=== PATIENT | female | born 1930 | race Caucasian/White ===

== ENCOUNTER → 2016-02-19 | Outpatient (REF) | payer MEDICARE, OTHER ==
[~2016-02-19] MED LIST: /FENO48TA; /FENO48TA PO; /WARF25TA OR; /WARF5TA OR; /WARF5TA PO; ALDA25TA2 OR; ALLO300T OR; AMIT25TA2; ATEN50TA2; ATEN50TA2 PO; AZOPT 1%; AZOPT OU; BABY81CH; CALC0.5C PO; CALCCHW12 PO; CIPR250T3 OR; CIPR25SS OR; COLA100C2 OR; COLC0.6T; DIPH2.5L OR; DOXE10CA2; FERR325T OR; FLAG500T OR; LASI40TA; LASI40TA PO; LEVA500T OR; LIPI10TA; LISI10TA4 OR; LISI20TA5; LUMIGAN 0.03%; LUMIGAN 0.03% OU; MACR50CA PO; MAGN500T2 OR; MULTIVIT OR; NEUR100C OR; NEUR300C; NEUR300C OR; NEUR600T OR; NYSTPOW4 TOP; OYST500T OR; POTA10CA2 OR; PRIL20CA; PRIL20CA PO; ROCA0.25; SERT50TA2 OR; SIMV20TA2 OR; TIMO0.5S OU; TIMO0.5S3; TYL OR; VITA100T PO; ZYLO100T; [UNRECOGNIZED DRUG - OTHER] OU; cosopt OU
[2016-02-19 12:28] LABS: INR 2.22
== END ==
LOC: SKLAB6 07:00
PROVIDERS: ATTEND Family Medicine
DX: Z51.81 Encounter for therapeutic drug level monitoring (principal); Z79.01 Long term (current) use of anticoagulants

== ENCOUNTER → 2016-02-26 | Outpatient (REF) | payer MEDICARE, OTHER ==
[2016-02-26 08:45] LABS: MEAN CORPUSCULAR HEMOGLOBIN 31.5 pg (27.0-33.0); MEAN CORPUSCULAR HGB CONC 32.5 g/dl (32.0-36.5); MEAN CORPUSCULAR VOLUME 97.1 fl (80.0-96.0); RED CELL DISTRIBUTION WIDTH 14.4 % (11.5-14.5); WHITE BLOOD COUNT 7.1 K/mm3 (4.0-10.0)
[2016-02-26 09:08] LABS: INR 2.5
[2016-02-26 09:16] LABS: CALCIUM LEVEL 9.3 MG/DL (8.8-10.2); CREATININE FOR GFR 1.34 MG/DL (0.55-1.02); GLOMERULAR FILTRATION RATE 39.9 (>32); POTASSIUM SERUM 4.6 MEQ/L (3.5-5.1)
== END ==
LOC: SKLAB6 07:00
PROVIDERS: ATTEND Family Medicine
DX: M10.9 Gout, unspecified (principal); Z79.01 Long term (current) use of anticoagulants

== ENCOUNTER → 2016-03-04 | Outpatient (REF) | payer MEDICARE, OTHER ==
[2016-03-04 08:32] LABS: INR 2.34
== END ==
LOC: SKLAB6 07:00
PROVIDERS: ATTEND Family Medicine
DX: Z51.81 Encounter for therapeutic drug level monitoring (principal); Z79.01 Long term (current) use of anticoagulants

== ENCOUNTER → 2016-03-11 | Outpatient (REF) | payer MEDICARE, OTHER ==
[2016-03-11 09:22] LABS: INR 2.4
== END ==
LOC: SKLAB6 07:00
PROVIDERS: ATTEND Family Medicine
DX: Z51.81 Encounter for therapeutic drug level monitoring (principal); Z79.01 Long term (current) use of anticoagulants

== ENCOUNTER → 2016-03-18 | Outpatient (REF) | payer MEDICARE, OTHER ==
[2016-03-18 08:42] LABS: INR 2.43
== END ==
LOC: SKLAB6 07:00
PROVIDERS: ATTEND Family Medicine
DX: Z79.01 Long term (current) use of anticoagulants (principal)

== ENCOUNTER → 2016-03-25 | Outpatient (REF) | payer MEDICARE, OTHER ==
[2016-03-25 08:12] LABS: INR 2.32
== END ==
LOC: SKLAB6 07:00
PROVIDERS: ATTEND Family Medicine
DX: Z51.81 Encounter for therapeutic drug level monitoring (principal); Z79.01 Long term (current) use of anticoagulants

== ENCOUNTER → 2016-04-01 | Outpatient (REF) | payer MEDICARE, OTHER ==
[2016-04-01 09:24] LABS: INR 1.93
== END ==
LOC: SKLAB6 07:00
PROVIDERS: ATTEND Family Medicine
DX: Z79.01 Long term (current) use of anticoagulants (principal)

== ENCOUNTER → 2016-04-08 | Outpatient (REF) | payer MEDICARE, OTHER ==
[2016-04-08 08:28] LABS: INR 1.84
== END ==
LOC: SKLAB6 07:00
PROVIDERS: ATTEND Family Medicine
DX: Z79.01 Long term (current) use of anticoagulants (principal)

== ENCOUNTER → 2016-04-15 | Outpatient (REF) | payer MEDICARE, OTHER ==
[2016-04-15 09:28] LABS: INR 2.48
== END ==
LOC: SKLAB6 07:00
PROVIDERS: ATTEND Family Medicine
DX: I48.91 Unspecified atrial fibrillation (principal)

== ENCOUNTER → 2016-04-22 | Outpatient (REF) | payer MEDICARE, OTHER ==
[2016-04-22 09:41] LABS: INR 2.33
== END ==
LOC: SKLAB6 07:00
PROVIDERS: ATTEND Family Medicine
DX: Z79.01 Long term (current) use of anticoagulants (principal)

== ENCOUNTER → 2016-04-29 | Outpatient (REF) | payer MEDICARE, OTHER ==
[2016-04-29 10:00] LABS: INR 2.03
== END ==
LOC: SKLAB6 07:00
PROVIDERS: ATTEND Family Medicine
DX: I48.2 Chronic atrial fibrillation (principal)

== ENCOUNTER → 2016-05-06 | Outpatient (REF) | payer MEDICARE, OTHER ==
[2016-05-06 09:45] LABS: INR 2.05
== END ==
LOC: SKLAB6 07:00
PROVIDERS: ATTEND Family Medicine
DX: Z79.01 Long term (current) use of anticoagulants (principal)

== ENCOUNTER → 2016-05-20 | Outpatient (REF) | payer MEDICARE, OTHER | LOC: SKLAB6 07:00 | PROVIDERS: ATTEND Family Medicine | DX: Z79.01 Long term (current) use of anticoagulants (principal) ==

== ENCOUNTER → 2016-05-27 | Outpatient (REF) | payer MEDICARE, OTHER ==
[2016-05-27 08:40] LABS: INR 2.59
[2016-05-27 08:47] LABS: CALCIUM LEVEL 9.4 MG/DL (8.8-10.2); CREATININE FOR GFR 1.3 MG/DL (0.55-1.02); GLOMERULAR FILTRATION RATE 41.3 (>32); POTASSIUM SERUM 4.8 MEQ/L (3.5-5.1)
== END ==
LOC: SKLAB6 07:00
PROVIDERS: ATTEND Family Medicine
DX: I50.32 Chronic diastolic (congestive) heart failure (principal)

== ENCOUNTER → 2016-06-10 | Outpatient (REF) | payer MEDICARE, OTHER ==
[2016-06-10 08:40] LABS: INR 2.49
== END ==
LOC: SKLAB6 07:00
PROVIDERS: ATTEND Family Medicine
DX: Z79.01 Long term (current) use of anticoagulants (principal)

== ENCOUNTER → 2016-06-24 | Outpatient (REF) | payer MEDICARE, OTHER ==
[2016-06-24 09:21] LABS: CALCIUM LEVEL 9.2 MG/DL (8.8-10.2); CREATININE FOR GFR 1.23 MG/DL (0.55-1.02); GLOMERULAR FILTRATION RATE 44.1 (>32); POTASSIUM SERUM 4.8 MEQ/L (3.5-5.1)
[2016-06-24 09:22] LABS: INR 2.08
== END ==
LOC: SKLAB6 07:00
PROVIDERS: ATTEND Family Medicine
DX: I48.91 Unspecified atrial fibrillation (principal); Z79.01 Long term (current) use of anticoagulants

== ENCOUNTER → 2016-07-15 | Outpatient (REF) | payer MEDICARE, OTHER ==
[2016-07-15 09:12] LABS: INR 2.2
== END ==
LOC: SKLAB6 07:00
PROVIDERS: ATTEND Family Medicine
DX: Z79.01 Long term (current) use of anticoagulants (principal)

== ENCOUNTER → 2016-07-22 | Outpatient (REF) | payer MEDICARE, OTHER ==
[2016-07-22 10:16] LABS: CALCIUM LEVEL 8.7 MG/DL (8.8-10.2); CREATININE FOR GFR 1.3 MG/DL (0.55-1.02); GLOMERULAR FILTRATION RATE 41.3 (>32); POTASSIUM SERUM 4.7 MEQ/L (3.5-5.1)
== END ==
LOC: SKLAB6 08:00
PROVIDERS: ATTEND Family Medicine
DX: I48.91 Unspecified atrial fibrillation (principal); I50.9 Heart failure, unspecified

== ENCOUNTER → 2016-08-26 | Outpatient (REF) | payer MEDICARE, OTHER ==
[2016-08-26 10:36] LABS: INR 2.24
== END ==
LOC: SKLAB6 07:00
PROVIDERS: ATTEND Family Medicine
DX: I48.91 Unspecified atrial fibrillation (principal)

== ENCOUNTER → 2016-09-23 | Outpatient (REF) | payer MEDICARE, OTHER ==
[2016-09-23 10:29] LABS: INR 2.17
[2016-09-23 10:36] LABS: MEAN CORPUSCULAR HEMOGLOBIN 32.8 pg (27.0-33.0); MEAN CORPUSCULAR HGB CONC 32.4 g/dl (32.0-36.5); MEAN CORPUSCULAR VOLUME 101.2 fl (80.0-96.0); RED CELL DISTRIBUTION WIDTH 13.5 % (11.5-14.5); WHITE BLOOD COUNT 5.9 K/mm3 (4.0-10.0)
[2016-09-23 10:46] LABS: URIC ACID 6.5 MG/DL (2.6-6.0)
== END ==
LOC: SKLAB6 07:00
PROVIDERS: ATTEND Family Medicine
DX: I48.91 Unspecified atrial fibrillation (principal); I50.9 Heart failure, unspecified

== ENCOUNTER → 2016-10-28 | Outpatient (REF) | payer MEDICARE, OTHER ==
[2016-10-28 09:59] LABS: INR 2.16
[2016-10-28 10:12] LABS: CALCIUM LEVEL 9.1 MG/DL (8.8-10.2); CREATININE FOR GFR 1.35 MG/DL (0.55-1.02); GLOMERULAR FILTRATION RATE 39.5 (>32); POTASSIUM SERUM 4.7 MEQ/L (3.5-5.1)
== END ==
LOC: SKLAB6 07:00
PROVIDERS: ATTEND Family Medicine
DX: I48.91 Unspecified atrial fibrillation (principal); I50.9 Heart failure, unspecified

== ENCOUNTER → 2016-11-25 | Outpatient (REF) | payer MEDICARE, OTHER ==
[2016-11-25 10:06] LABS: INR 2.17
== END ==
LOC: SKLAB6 07:00
PROVIDERS: ATTEND Family Medicine
DX: I50.9 Heart failure, unspecified (principal)

== ENCOUNTER → 2016-12-23 | Outpatient (REF) | payer MEDICARE, OTHER ==
[2016-12-23 11:45] LABS: INR 2.54
== END ==
LOC: SKLAB6 07:00
PROVIDERS: ATTEND Family Medicine
DX: I50.30 Unspecified diastolic (congestive) heart failure (principal); M10.9 Gout, unspecified

== ENCOUNTER → 2017-01-27 | Outpatient (REF) | payer MEDICARE, OTHER ==
[2017-01-27 09:03] LABS: INR 3.01
[2017-01-27 09:17] LABS: CALCIUM LEVEL 8.7 MG/DL (8.8-10.2); CREATININE FOR GFR 1.31 MG/DL (0.55-1.02); GLOMERULAR FILTRATION RATE 40.9 (>32); POTASSIUM SERUM 4.9 MEQ/L (3.5-5.1)
== END ==
LOC: SKLAB6 07:00
PROVIDERS: ATTEND Family Medicine
DX: I50.9 Heart failure, unspecified (principal); G30.9 Alzheimer's disease, unspecified

== ENCOUNTER → 2017-02-03 | Outpatient (REF) | payer MEDICARE, OTHER ==
[2017-02-03 09:33] LABS: INR 2.53
== END ==
LOC: SKLAB6 07:00
PROVIDERS: ATTEND Family Medicine
DX: Z79.01 Long term (current) use of anticoagulants (principal)

== ENCOUNTER → 2017-02-24 | Outpatient (REF) | payer MEDICARE, OTHER ==
[2017-02-24 09:56] LABS: INR 2.88; PROTHROMBIN TIME 31.5 SECONDS (12.4-14.5)
== END ==
LOC: SKLAB6 07:00
DX: Z51.81 Encounter for therapeutic drug level monitoring (principal); Z79.01 Long term (current) use of anticoagulants
CPT/HCPCS: 36415

== ENCOUNTER 2017-03-18 10:30 | Emergency (ER) | payer MEDICARE, OTHER ==
[2017-03-18 12:30] LABS: BEDSIDE GLUCOSE 153 MG/DL (83-110)
[2017-03-18] MEDS: TETANUS/DIPHTHERIA TOX ADSORB ADULT 0.5ML SYR/VIAL (90714) IM (13:01)
== END 2017-03-18 13:07 | disposition home or self-care (01) ==
LOC: M ED 10:30
DX: S02.2XXB Fracture of nasal bones, initial encounter for open fracture (principal); W05.0XXA Fall from non-moving wheelchair, initial encounter; Y92.129 Unspecified place in nursing home as the place of occurrence of the external cause; I12.9 Hypertensive chronic kidney disease with stage 1 through stage 4 chronic kidney disease, or unspecified chronic kidney disease; J44.9 Chronic obstructive pulmonary disease, unspecified; I50.9 Heart failure, unspecified; N18.3 Chronic kidney disease, stage 3 (moderate); F03.90 Unspecified dementia, unspecified severity, without behavioral disturbance, psychotic disturbance, mood disturbance, and anxiety; K21.9 Gastro-esophageal reflux disease without esophagitis; M10.9 Gout, unspecified; H40.9 Unspecified glaucoma; I48.91 Unspecified atrial fibrillation; E66.9 Obesity, unspecified; G47.33 Obstructive sleep apnea (adult) (pediatric); Z88.0 Allergy status to penicillin; Z88.1 Allergy status to other antibiotic agents; Z88.2 Allergy status to sulfonamides; Z88.8 Allergy status to other drugs, medicaments and biological substances
CPT/HCPCS: 90714

== ENCOUNTER → 2017-03-24 | Outpatient (REF) | payer MEDICARE, OTHER ==
[2017-03-24 09:02] LABS: HEMATOCRIT 36.1 % (36.0-47.0); HEMOGLOBIN 11.3 g/dl (12.0-16.0); MEAN CORPUSCULAR HEMOGLOBIN 31.4 pg (27.0-33.0); MEAN CORPUSCULAR HGB CONC 31.3 g/dl (32.0-36.5); MEAN CORPUSCULAR VOLUME 100.3 fl (80.0-96.0); PLATELET COUNT, AUTOMATED 210 10^3/uL (150-450); RED CELL DISTRIBUTION WIDTH 14.2 % (11.5-14.5); WHITE BLOOD COUNT 7.5 10^3/uL (4.0-10.0)
[2017-03-24 09:25] LABS: INR 3.65; PROTHROMBIN TIME 38.1 SECONDS (12.4-14.5)
[2017-03-24 09:28] LABS: URIC ACID 7.1 MG/DL (2.6-6.0)
== END ==
LOC: SKLAB6 07:00
DX: G30.1 Alzheimer's disease with late onset (principal); F02.80 Dementia in other diseases classified elsewhere, unspecified severity, without behavioral disturbance, psychotic disturbance, mood disturbance, and anxiety; I48.91 Unspecified atrial fibrillation
CPT/HCPCS: 84550

== ENCOUNTER → 2017-04-07 | Outpatient (REF) | payer MEDICARE, OTHER ==
[2017-04-07 10:20] LABS: INR 2.05; PROTHROMBIN TIME 23.8 SECONDS (12.4-14.5)
== END ==
LOC: SKLAB6 07:00
DX: Z79.01 Long term (current) use of anticoagulants (principal)
CPT/HCPCS: 36415

== ENCOUNTER → 2017-04-14 | Outpatient (REF) | payer MEDICARE, OTHER ==
[2017-04-14 08:48] LABS: INR 2.39
== END ==
LOC: SKLAB6 07:00
DX: Z79.01 Long term (current) use of anticoagulants (principal)
CPT/HCPCS: 36415

== ENCOUNTER → 2017-04-21 | Outpatient (REF) | payer MEDICARE, OTHER ==
[2017-04-21 08:12] LABS: INR 2.67; PROTHROMBIN TIME 29.5 SECONDS (12.4-14.5)
[2017-04-21 08:45] LABS: ANION GAP 9 MEQ/L (8-16); BLOOD UREA NITROGEN 20 MG/DL (7-18); CALCIUM LEVEL 8.6 MG/DL (8.8-10.2); CARBON DIOXIDE LEVEL 26 MEQ/L (21-32); CHLORIDE LEVEL 108 MEQ/L (98-107); GLUCOSE, FASTING 121 MG/DL (70-100); POTASSIUM SERUM 4.6 MEQ/L (3.5-5.1); SODIUM LEVEL 143 MEQ/L (136-145)
== END ==
LOC: SKLAB6 07:00
DX: I48.91 Unspecified atrial fibrillation (principal)
CPT/HCPCS: 36415

== ENCOUNTER → 2017-05-26 | Outpatient (REF) | payer MEDICARE, OTHER ==
[2017-05-26 09:22] LABS: INR 3.05; PROTHROMBIN TIME 32.9 SECONDS (12.4-14.5)
== END ==
LOC: SKLAB6 06-01 08:00
DX: I48.91 Unspecified atrial fibrillation (principal); Z79.01 Long term (current) use of anticoagulants
CPT/HCPCS: 85610

== ENCOUNTER → 2017-07-28 | Outpatient (REF) | payer MEDICARE, OTHER ==
[2017-07-28 08:21] LABS: ANION GAP 7 MEQ/L (8-16); BLOOD UREA NITROGEN 24 MG/DL (7-18); CALCIUM LEVEL 9.2 MG/DL (8.8-10.2); CARBON DIOXIDE LEVEL 30 MEQ/L (21-32); CHLORIDE LEVEL 103 MEQ/L (98-107); CREATININE FOR GFR 1.29 MG/DL (0.55-1.30); GLOMERULAR FILTRATION RATE 41.6 (>32); GLUCOSE, FASTING 128 MG/DL (70-100); POTASSIUM SERUM 4.5 MEQ/L (3.5-5.1); SODIUM LEVEL 140 MEQ/L (136-145)
[2017-07-28 08:27] LABS: INR 2.61
== END ==
LOC: SKLAB6 07:00
DX: I48.91 Unspecified atrial fibrillation (principal)
CPT/HCPCS: 36415

== ENCOUNTER → 2017-08-31 | Outpatient (REF) | payer MEDICARE, OTHER ==
[2017-08-31 02:35] LABS: APPEARANCE, URINE CLEAR (CLEAR); BACTERIA, URINE AUTO 1+ (NEGATIVE); BILIRUBIN, URINE AUTO NEGATIVE (NEGATIVE); BLOOD, URINE BLOOD NEGATIVE (NEGATIVE); COLOR, URINE YELLOW (YELLOW); GLUCOSE, URINE (UA) AUTO NEGATIVE (NEGATIVE); KETONE, URINE AUTO NEGATIVE (NEGATIVE); LEUKOCYTE ESTERASE, URINE AUTO TRACE (NEGATIVE); MUCUS, URINE SMALL (NEGATIVE); NITRITE, URINE AUTO NEGATIVE (NEGATIVE); PROTEIN, URINE AUTO NEGATIVE (NEGATIVE); RBC, URINE AUTO 2 /HPF (0-3); SPECIFIC GRAVITY URINE AUTO 1.018 (1.002-1.035); SQUAMOUS EPITHELIAL CELL UR AU 0 /HPF (0-6); UROBILINOGEN, URINE AUTO 0.2 mg/dL (0.0-2.0); WBC, URINE AUTO 1 /HPF (0-3)
== END ==
LOC: SKLAB6 01:00
DX: R30.9 Painful micturition, unspecified (principal)
CPT/HCPCS: 81001

== ENCOUNTER → 2017-09-22 | Outpatient (REF) | payer MEDICARE, OTHER ==
[2017-09-22 11:59] LABS: HEMATOCRIT 38.1 % (36.0-47.0); MEAN CORPUSCULAR HEMOGLOBIN 32.1 pg (27.0-33.0); MEAN CORPUSCULAR HGB CONC 31.5 g/dl (32.0-36.5); MEAN CORPUSCULAR VOLUME 101.9 fl (80.0-96.0); PLATELET COUNT, AUTOMATED 238 10^3/uL (150-450); RED BLOOD COUNT 3.74 10^6/uL (4.00-5.40); RED CELL DISTRIBUTION WIDTH 13.8 % (11.5-14.5); WHITE BLOOD COUNT 9.4 10^3/uL (4.0-10.0)
[2017-09-22 12:18] LABS: INR 2.09; PROTHROMBIN TIME 23.9 SECONDS (12.1-14.4)
[2017-09-22 14:33] LABS: URIC ACID 6.8 MG/DL (2.6-6.0)
== END ==
LOC: SKLAB6 07:00
DX: I50.32 Chronic diastolic (congestive) heart failure (principal); G30.9 Alzheimer's disease, unspecified; M10.9 Gout, unspecified
CPT/HCPCS: 84443

== ENCOUNTER → 2017-10-27 | Outpatient (REF) | payer MEDICARE, OTHER ==
[2017-10-27 10:56] LABS: INR 2.61; PROTHROMBIN TIME 28.5 SECONDS (12.1-14.4)
[2017-10-27 11:13] LABS: ANION GAP 12 MEQ/L (8-16); BLOOD UREA NITROGEN 24 MG/DL (7-18); CALCIUM LEVEL 9.3 MG/DL (8.8-10.2); CARBON DIOXIDE LEVEL 20 MEQ/L (21-32); CHLORIDE LEVEL 106 MEQ/L (98-107); CREATININE FOR GFR 1.32 MG/DL (0.55-1.30); GLOMERULAR FILTRATION RATE 40.4 (>32); GLUCOSE, FASTING 212 MG/DL (70-100); POTASSIUM SERUM 5.1 MEQ/L (3.5-5.1); SODIUM LEVEL 138 MEQ/L (136-145)
== END ==
LOC: SKLAB6 07:00
DX: Z79.01 Long term (current) use of anticoagulants (principal)
CPT/HCPCS: 36415

== ENCOUNTER → 2017-11-24 | Outpatient (REF) | payer MEDICARE, OTHER ==
[2017-11-24 09:15] LABS: INR 2.33
== END ==
LOC: SKLAB6 07:00
DX: Z79.01 Long term (current) use of anticoagulants (principal)
CPT/HCPCS: 85610

== ENCOUNTER → 2017-12-22 | Outpatient (REF) | payer MEDICARE, OTHER ==
[2017-12-22 09:13] LABS: URIC ACID 7.1 MG/DL (2.6-6.0)
[2017-12-22 09:17] LABS: INR 2.39; PROTHROMBIN TIME 26.6 SECONDS (12.1-14.4)
== END ==
LOC: SKLAB6 07:00
DX: M10.9 Gout, unspecified (principal); Z79.01 Long term (current) use of anticoagulants
CPT/HCPCS: 84550

== ENCOUNTER → 2018-01-26 | Outpatient (REF) | payer MEDICARE, OTHER ==
[2018-01-26 08:33] LABS: INR 2.32; PROTHROMBIN TIME 25.9 SECONDS (12.1-14.4)
[2018-01-26 09:44] LABS: ANION GAP 7 MEQ/L (8-16); BLOOD UREA NITROGEN 21 MG/DL (7-18); CALCIUM LEVEL 9.1 MG/DL (8.8-10.2); CARBON DIOXIDE LEVEL 29 MEQ/L (21-32); CHLORIDE LEVEL 105 MEQ/L (98-107); CREATININE FOR GFR 1.24 MG/DL (0.55-1.30); GLOMERULAR FILTRATION RATE 43.5 (>32); GLUCOSE, FASTING 121 MG/DL (70-100); POTASSIUM SERUM 4.4 MEQ/L (3.5-5.1); SODIUM LEVEL 141 MEQ/L (136-145)
== END ==
LOC: SKLAB6 07:00
DX: I50.30 Unspecified diastolic (congestive) heart failure (principal); Z79.01 Long term (current) use of anticoagulants
CPT/HCPCS: 80048

== ENCOUNTER → 2018-02-23 | Outpatient (REF) | payer MEDICARE, OTHER ==
[~2018-02-23] MED LIST changes: +BACITAB PO; +CITA10SO PO; +CLIN150C14 PO; +DULC5TAB PO
[2018-02-23 08:04] LABS: INR 2.64; PROTHROMBIN TIME 28.7 SECONDS (12.1-14.4)
== END ==
LOC: SKLAB6 07:00
PROVIDERS: ATTEND Family Medicine
DX: I48.91 Unspecified atrial fibrillation (principal)

== ENCOUNTER → 2018-03-30 | Outpatient (REF) | payer MEDICARE, OTHER ==
[2018-03-30 09:03] LABS: HEMATOCRIT 35.3 % (36.0-47.0); HEMOGLOBIN 11.3 g/dl (12.0-15.5); MEAN CORPUSCULAR HEMOGLOBIN 33.4 pg (27.0-33.0); MEAN CORPUSCULAR VOLUME 104.4 fl (80.0-96.0); PLATELET COUNT, AUTOMATED 151 10^3/uL (150-450); RED BLOOD COUNT 3.38 10^6/uL (4.00-5.40); WHITE BLOOD COUNT 5.9 10^3/uL (4.0-10.0)
[2018-03-30 09:47] LABS: INR 2.04; PROTHROMBIN TIME 23.4 SECONDS (12.1-14.4)
== END ==
LOC: SKLAB6 07:00
PROVIDERS: ATTEND Family Medicine
DX: I48.91 Unspecified atrial fibrillation (principal); M10.9 Gout, unspecified; F03.90 Unspecified dementia, unspecified severity, without behavioral disturbance, psychotic disturbance, mood disturbance, and anxiety

== ENCOUNTER → 2018-04-27 | Outpatient (REF) | payer MEDICARE, OTHER ==
[2018-04-27 08:27] LABS: INR 1.75; PROTHROMBIN TIME 20.7 SECONDS (12.1-14.4)
[2018-04-27 08:45] LABS: CALCIUM LEVEL 9.1 MG/DL (8.8-10.2); CREATININE FOR GFR 1.45 MG/DL (0.55-1.30); GLOMERULAR FILTRATION RATE 36.3 (>32); POTASSIUM SERUM 4.4 MEQ/L (3.5-5.1)
== END ==
LOC: SKLAB6 07:00
PROVIDERS: ATTEND Family Medicine
DX: I48.91 Unspecified atrial fibrillation (principal); F03.90 Unspecified dementia, unspecified severity, without behavioral disturbance, psychotic disturbance, mood disturbance, and anxiety

== ENCOUNTER → 2018-05-04 | Outpatient (REF) | payer MEDICARE, OTHER ==
[2018-05-04 08:46] LABS: INR 2.17; PROTHROMBIN TIME 24.6 SECONDS (12.1-14.4)
== END ==
LOC: SKLAB6 08:00
PROVIDERS: ATTEND Family Medicine
DX: Z79.01 Long term (current) use of anticoagulants (principal)

== ENCOUNTER → 2018-05-25 | Outpatient (REF) | payer MEDICARE ==
[~2018-05-25] MED LIST changes: -/FENO48TA; -/FENO48TA PO; -/WARF25TA OR; -/WARF5TA OR; -/WARF5TA PO; -CALC0.5C PO; +CALC0.5C14 PO; +COUM1TAB17 OR; +COUM1TAB17 PO; +COUM1TAB18 OR; -TIMO0.5S3; +TIMO5SOL6; +TRIC1TAB; +TRIC1TAB PO
[2018-05-25 08:31] LABS: INR 3.01; PROTHROMBIN TIME 31.9 SECONDS (12.1-14.4)
== END ==
LOC: SKLAB6 07:00
PROVIDERS: ATTEND Family Medicine
DX: Z79.01 Long term (current) use of anticoagulants (principal)

== ENCOUNTER → 2018-06-01 | Outpatient (REF) | payer MEDICARE ==
[2018-06-01 08:43] LABS: INR 2.29; PROTHROMBIN TIME 25.6 SECONDS (12.1-14.4)
== END ==
LOC: SKLAB6 07:00
PROVIDERS: ATTEND Family Medicine
DX: Z79.01 Long term (current) use of anticoagulants (principal)

== ENCOUNTER → 2018-06-22 | Outpatient (REF) | payer MEDICARE ==
[2018-06-22 08:33] LABS: INR 1.62; PROTHROMBIN TIME 19.5 SECONDS (12.1-14.4)
== END ==
LOC: SKLAB6 07:00
PROVIDERS: ATTEND Family Medicine
DX: Z79.01 Long term (current) use of anticoagulants (principal)

== ENCOUNTER → 2018-06-26 | Outpatient (REF) | payer MEDICARE ==
[2018-06-26 08:05] LABS: INR 1.85; PROTHROMBIN TIME 21.7 SECONDS (12.1-14.4)
== END ==
LOC: SKLAB6 07:00
PROVIDERS: ATTEND Family Medicine
DX: Z79.01 Long term (current) use of anticoagulants (principal)

== ENCOUNTER → 2018-06-29 | Outpatient (REF) | payer MEDICARE ==
[2018-06-29 08:17] LABS: INR 2.28; PROTHROMBIN TIME 25.6 SECONDS (12.1-14.4)
== END ==
LOC: SKLAB6 07:00
PROVIDERS: ATTEND Family Medicine
DX: Z79.01 Long term (current) use of anticoagulants (principal)

== ENCOUNTER → 2018-08-24 | Outpatient (REF) | payer MEDICARE ==
[2018-08-24 07:33] LABS: INR 2.28; PROTHROMBIN TIME 24.9 SECONDS (11.8-14.0)
== END ==
LOC: SKLAB6 07:00
PROVIDERS: ATTEND Family Medicine
DX: Z79.01 Long term (current) use of anticoagulants (principal)

== ENCOUNTER → 2018-09-21 | Outpatient (REF) | payer MEDICARE ==
[2018-09-21 08:05] LABS: HEMATOCRIT 29.4 % (36.0-47.0); HEMOGLOBIN 9.3 g/dl (12.0-15.5); MEAN CORPUSCULAR HEMOGLOBIN 33.1 pg (27.0-33.0); MEAN CORPUSCULAR HGB CONC 31.6 g/dl (32.0-36.5); MEAN CORPUSCULAR VOLUME 104.6 fl (80.0-96.0); PLATELET COUNT, AUTOMATED 124 10^3/uL (150-450); RED BLOOD COUNT 2.81 10^6/uL (4.00-5.40); WHITE BLOOD COUNT 4.3 10^3/uL (4.0-10.0)
[2018-09-21 08:14] LABS: INR 1.99; PROTHROMBIN TIME 22.3 SECONDS (11.8-14.0)
[2018-09-21 08:25] LABS: THYROID STIMULATING HORMONE 1.98 uIU/ML (0.358-3.740)
== END ==
LOC: SKLAB6 07:00
PROVIDERS: ATTEND Family Medicine
DX: Z79.01 Long term (current) use of anticoagulants (principal); E03.9 Hypothyroidism, unspecified

== ENCOUNTER → 2018-09-28 | Outpatient (REF) | payer MEDICARE ==
[2018-09-28 08:44] LABS: HEMATOCRIT 33.7 % (36.0-47.0); HEMOGLOBIN 10.6 g/dl (12.0-15.5); MEAN CORPUSCULAR HEMOGLOBIN 34.1 pg (27.0-33.0); MEAN CORPUSCULAR HGB CONC 31.5 g/dl (32.0-36.5); MEAN CORPUSCULAR VOLUME 108.4 fl (80.0-96.0); PLATELET COUNT, AUTOMATED 129 10^3/uL (150-450); RED BLOOD COUNT 3.11 10^6/uL (4.00-5.40); WHITE BLOOD COUNT 4.3 10^3/uL (4.0-10.0)
== END ==
LOC: SKLAB6 07:00
PROVIDERS: ATTEND Family Medicine
DX: I50.30 Unspecified diastolic (congestive) heart failure (principal)

== ENCOUNTER → 2018-10-26 | Outpatient (REF) | payer MEDICARE ==
[2018-10-26 08:58] LABS: INR 2.18; PROTHROMBIN TIME 24.1 SECONDS (11.8-14.0)
[2018-10-26 09:20] LABS: CALCIUM LEVEL 9.3 MG/DL (8.8-10.2); CREATININE FOR GFR 1.4 MG/DL (0.55-1.30); GLOMERULAR FILTRATION RATE 37.7 (>32); POTASSIUM SERUM 4.6 MEQ/L (3.5-5.1)
== END ==
LOC: SKLAB6 07:00
PROVIDERS: ATTEND Family Medicine
DX: I50.32 Chronic diastolic (congestive) heart failure (principal); Z79.01 Long term (current) use of anticoagulants

== ENCOUNTER → 2018-11-23 | Outpatient (REF) | payer MEDICARE ==
[2018-11-23 08:51] LABS: INR 1.86; PROTHROMBIN TIME 21.2 SECONDS (11.8-14.0)
== END ==
LOC: SKLAB6 07:00
PROVIDERS: ATTEND Family Medicine
DX: I50.9 Heart failure, unspecified (principal)

== ENCOUNTER → 2018-11-30 | Outpatient (REF) | payer MEDICARE ==
[2018-11-30 08:57] LABS: INR 2.2; PROTHROMBIN TIME 24.2 SECONDS (11.8-14.0)
== END ==
LOC: SKLAB6 07:00
PROVIDERS: ATTEND Family Medicine
DX: Z79.01 Long term (current) use of anticoagulants (principal)

== ENCOUNTER → 2018-12-01 | Outpatient (REF) | payer MEDICARE ==
[2018-12-01 15:09] LABS: HEMATOCRIT 31.8 % (36.0-47.0); HEMOGLOBIN 10.2 g/dl (12.0-15.5); MEAN CORPUSCULAR HEMOGLOBIN 34.1 pg (27.0-33.0); MEAN CORPUSCULAR HGB CONC 32.1 g/dl (32.0-36.5); MEAN CORPUSCULAR VOLUME 106.4 fl (80.0-96.0); PLATELET COUNT, AUTOMATED 107 10^3/uL (150-450); RED BLOOD COUNT 2.99 10^6/uL (4.00-5.40); WHITE BLOOD COUNT 6.1 10^3/uL (4.0-10.0)
[2018-12-01 15:31] LABS: CALCIUM LEVEL 8.6 MG/DL (8.8-10.2); CREATININE FOR GFR 1.47 MG/DL (0.55-1.30); GLOMERULAR FILTRATION RATE 35.6 (>32); POTASSIUM SERUM 4.4 MEQ/L (3.5-5.1)
--- NOTE | 2018-12-01 16:15 | REP ---
Portable chest x-ray: Single view. History: Cough and congestion. Comparison chest x-ray: August 20, 2017. Findings: Today's views exposed at a low level of inspiration. There are increased markings in the left base which appear to be unchanged. No definite acute infiltrate. Impression: Low level of inspiration. Chronically increased markings in the left base. No definite acute infiltrate. Electronically Signed by Anuel Adams MD 12/01/2018 07:48 P
== END ==
LOC: SKLAB6 14:20
PROVIDERS: ATTEND Family Medicine
DX: R05 Cough (principal); R09.89 Other specified symptoms and signs involving the circulatory and respiratory systems

== ENCOUNTER → 2018-12-28 | Outpatient (REF) | payer MEDICARE ==
[2018-12-28 09:26] LABS: INR 2.91; PROTHROMBIN TIME 30.3 SECONDS (11.8-14.0)
== END ==
LOC: SKLAB6 07:00
PROVIDERS: ATTEND Family Medicine
DX: Z79.899 Other long term (current) drug therapy (principal); Z79.01 Long term (current) use of anticoagulants

== ENCOUNTER → 2019-01-05 | Outpatient (REF) | payer MEDICARE ==
[2019-01-05 07:45] LABS: INR 2.73; PROTHROMBIN TIME 28.8 SECONDS (11.8-14.0)
== END ==
LOC: SKLAB6 07:00
PROVIDERS: ATTEND Family Medicine
DX: Z79.899 Other long term (current) drug therapy (principal); Z79.01 Long term (current) use of anticoagulants

== ENCOUNTER → 2019-01-25 | Outpatient (REF) | payer MEDICARE ==
[2019-01-25 08:46] LABS: INR 3.26; PROTHROMBIN TIME 33.2 SECONDS (11.8-14.0)
== END ==
LOC: SKLAB6 07:00
PROVIDERS: ATTEND Family Medicine
DX: Z79.01 Long term (current) use of anticoagulants (principal)

== ENCOUNTER → 2019-02-01 | Outpatient (REF) | payer MEDICARE ==
[2019-02-01 09:18] LABS: INR 4.65; PROTHROMBIN TIME 44.1 SECONDS (11.8-14.0)
== END ==
LOC: SKLAB6 07:00
PROVIDERS: ATTEND Family Medicine
DX: Z79.01 Long term (current) use of anticoagulants (principal)

== ENCOUNTER → 2019-02-05 | Outpatient (REF) | payer MEDICARE ==
[2019-02-05 09:05] LABS: INR 1.61; PROTHROMBIN TIME 18.9 SECONDS (11.8-14.0)
== END ==
LOC: SKLAB6 07:00
PROVIDERS: ATTEND Family Medicine
DX: Z79.01 Long term (current) use of anticoagulants (principal)

== ENCOUNTER → 2019-02-12 | Outpatient (REF) | payer MEDICARE ==
[2019-02-12 11:16] LABS: INR 2.12; PROTHROMBIN TIME 23.5 SECONDS (11.8-14.0)
== END ==
LOC: SKLAB6 07:00
PROVIDERS: ATTEND Family Medicine
DX: Z79.01 Long term (current) use of anticoagulants (principal)

== ENCOUNTER → 2019-02-19 | Outpatient (REF) | payer MEDICARE ==
[2019-02-19 10:46] LABS: INR 2.29
== END ==
LOC: SKLAB6 07:00
PROVIDERS: ATTEND Family Medicine
DX: Z79.01 Long term (current) use of anticoagulants (principal)

== ENCOUNTER → 2019-02-26 | Outpatient (REF) | payer MEDICARE ==
[2019-02-26 11:45] LABS: INR 2.46; PROTHROMBIN TIME 26.5 SECONDS (11.8-14.0)
== END ==
LOC: SKLAB6 07:00
PROVIDERS: ATTEND Family Medicine
DX: Z79.01 Long term (current) use of anticoagulants (principal)

== ENCOUNTER → 2019-03-05 | Outpatient (REF) | payer MEDICARE ==
[2019-03-05 08:34] LABS: INR 2.32; PROTHROMBIN TIME 25.3 SECONDS (11.8-14.0)
== END ==
LOC: SKLAB6 07:00
PROVIDERS: ATTEND Family Medicine
DX: Z79.899 Other long term (current) drug therapy (principal)

== ENCOUNTER → 2019-03-12 | Outpatient (REF) | payer MEDICARE ==
[2019-03-12 08:24] LABS: INR 2.24; PROTHROMBIN TIME 24.6 SECONDS (11.8-14.0)
== END ==
LOC: SKLAB6 07:00
PROVIDERS: ATTEND Family Medicine
DX: Z51.81 Encounter for therapeutic drug level monitoring (principal); Z79.01 Long term (current) use of anticoagulants

== ENCOUNTER → 2019-03-29 | Outpatient (REF) | payer MEDICARE ==
[2019-03-29 07:44] LABS: HEMATOCRIT 28.1 % (36.0-47.0); HEMOGLOBIN 8.5 g/dl (12.0-15.5); MEAN CORPUSCULAR HEMOGLOBIN 32.7 pg (27.0-33.0); MEAN CORPUSCULAR HGB CONC 30.2 g/dl (32.0-36.5); MEAN CORPUSCULAR VOLUME 108.1 fl (80.0-96.0); PLATELET COUNT, AUTOMATED 138 10^3/uL (150-450); WHITE BLOOD COUNT 4.9 10^3/uL (4.0-10.0)
== END ==
LOC: SKLAB6 07:00
PROVIDERS: ATTEND Family Medicine
DX: Z79.899 Other long term (current) drug therapy (principal)

== ENCOUNTER → 2019-04-13 | Outpatient (REF) | payer MEDICARE ==
[2019-04-13 09:25] LABS: HEMOGLOBIN 7.7 g/dl (12.0-15.5); MEAN CORPUSCULAR HEMOGLOBIN 33.6 pg (27.0-33.0); MEAN CORPUSCULAR HGB CONC 30.8 g/dl (32.0-36.5); MEAN CORPUSCULAR VOLUME 109.2 fl (80.0-96.0); PLATELET COUNT, AUTOMATED 125 10^3/uL (150-450); RED BLOOD COUNT 2.29 10^6/uL (4.00-5.40)
== END ==
LOC: SKLAB6 07:00
PROVIDERS: ATTEND Family Medicine
DX: Z79.899 Other long term (current) drug therapy (principal)

== ENCOUNTER → 2019-04-26 | Outpatient (REF) | payer MEDICARE ==
[2019-04-26 09:52] LABS: CALCIUM LEVEL 8.7 MG/DL (8.8-10.2); CREATININE FOR GFR 1.12 MG/DL (0.55-1.30); GLOMERULAR FILTRATION RATE 48.8 (>32); POTASSIUM SERUM 4.4 MEQ/L (3.5-5.1)
[2019-04-26 10:11] LABS: INR 2.85; PROTHROMBIN TIME 29.8 SECONDS (11.8-14.0)
== END ==
LOC: SKLAB6 07:00
PROVIDERS: ATTEND Family Medicine
DX: Z79.01 Long term (current) use of anticoagulants (principal)

== ENCOUNTER → 2019-05-07 | Outpatient (REF) | payer MEDICARE ==
[2019-05-07 07:24] LABS: HEMATOCRIT 26.4 % (36.0-47.0); HEMOGLOBIN 8.1 g/dl (12.0-15.5); MEAN CORPUSCULAR HEMOGLOBIN 34.3 pg (27.0-33.0); MEAN CORPUSCULAR HGB CONC 30.7 g/dl (32.0-36.5); MEAN CORPUSCULAR VOLUME 111.9 fl (80.0-96.0); PLATELET COUNT, AUTOMATED 111 10^3/uL (150-450); RED BLOOD COUNT 2.36 10^6/uL (4.00-5.40); WHITE BLOOD COUNT 6.5 10^3/uL (4.0-10.0)
--- NOTE | 2019-05-07 08:15 | REP ---
Clinical: Hypertension and dyspnea. Comparison: 12/01/2018. Findings: Mild cardiomegaly suggested. Lung martinez demonstrate diffuse chronic fibrosis/interstitial changes. Superimposed scattered subtle alveolar infiltrates cannot be excluded. No obvious effusion. No pneumothorax. Skeletal structures intact. Impression: Stable cardiomegaly and chronic interstitial changes/fibrosis. Subtle scattered infiltrates cannot be excluded. Electronically Signed by Naeem Quesada MD 05/07/2019 08:07 A
[2019-05-07 10:44] LABS: ALBUMIN 2.9 GM/DL (3.2-5.2); BILIRUBIN,TOTAL 0.4 MG/DL (0.2-1.0); CALCIUM LEVEL 8.7 MG/DL (8.8-10.2); CREATININE FOR GFR 1.33 MG/DL (0.55-1.30); FOLATE 18.7 NG/ML (>5.4); PERCENT SATURATION 15.4 % (13.2-45.0); POTASSIUM SERUM 5.1 MEQ/L (3.5-5.1); TOTAL PROTEIN 7.7 GM/DL (6.4-8.2)
== END ==
LOC: SKLAB6 06:27
PROVIDERS: ATTEND Family Medicine
DX: R03.0 Elevated blood-pressure reading, without diagnosis of hypertension (principal)

== ENCOUNTER → 2019-05-07 | Outpatient (REF) | payer MEDICARE | LOC: SKLAB6 07:00 | PROVIDERS: ATTEND Family Medicine | DX: J84.10 Pulmonary fibrosis, unspecified (principal); I51.7 Cardiomegaly; R06.00 Dyspnea, unspecified ==